=== PATIENT | male | born 1980 | race Two or more races ===

== ENCOUNTER 2017-11-15 23:19 | Emergency (ER) | payer SELFPAY ==
[~2017-11-15] VITALS: Ht 172.7 cm; Wt 78.9 kg
--- NOTE | 2017-11-15 23:31 | NUR ---
[id number] C/C PER EMS, PT'S STATES "HE IS ACTING STRANGE AFTER DRINKING 4 BOTTLES OF BEER TODAY". BS IN FIELD 139. -SI,-HI. PT AOX3 RR EVEN AND UNLABORED. PT DENIES ANY MEDICAL COMPLAINT. NO SOB NOTED. NAD NOTED. NO NVD AT THIS. PT PLACED ON MONITOR WAITING FOR MD SILVA.
--- NOTE | 2017-11-15 23:38 | NUR ---
Patient eloped from facility. ER MD notified.
--- NOTE | 2017-11-16 00:50 | NUR ---
PT RETURNED WITH WITH AT BEDSIDE. PT'S STATES "HE IS ACTING STRANGE AFTER DRINKING 4 BOTTLES OF BEER TODAY" PT -SI,-HI. PT AOX3 RR EVEN AND UNLABORED. PT DENIES ANY MEDICAL COMPLAINT. NO SOB NOTED. NAD NOTED. NO NVD AT THIS. PT PLACED ON MONITOR WAITING FOR MD SILVA
--- NOTE | 2017-11-16 01:06 | NUR ---
PT HANDED OVER URINE AND STATED HE POURED WATER FROM SINK IN THE URINE CONTAINER. MADE AWARE.
--- NOTE | 2017-11-16 01:56 | NUR ---
CALLED LAB FOR BLOOD DRAW.
--- NOTE | 2017-11-16 02:16 | NUR ---
LAB AT BEDSIDE FOR BLOOD DRAW
[2017-11-16 02:22] LABS: EOSINOPHILS % (AUTO) 1.2 % (0.0-6.0); HEMOGLOBIN 14.1 g/dL (13.5-17.5)
[2017-11-16 02:29] LABS: BASOPHILS # (AUTO) 0.1 /CMM (0.0-0.2); BASOPHILS % (AUTO) 1.1 % (0.0-2.0); HEMATOCRIT 41 % (39-51); LYMPHOCYTES # (AUTO) 2.8 /CMM (0.8-4.8); LYMPHOCYTES % (AUTO) 45.4 % (20.0-44.0); MEAN CORPUSCULAR HEMOGLOBIN 34 PG (26.0-33.0); MEAN CORPUSCULAR HGB CONC 34 g/dl (31.0-36.0); MEAN CORPUSCULAR VOLUME 98 fL (80-96); MONOCYTES # (AUTO) 0.6 /CMM (0.1-1.30); MONOCYTES % (AUTO) 9.1 % (2.0-12.0); NEUTROPHILS # (AUTO) 2.7 /CMM (1.8-8.9); NEUTROPHILS % (AUTO) 43.2 % (43.0-81.0); PLATELET COUNT (AUTO) 214 /CMM (150-450); RDW COEFFICIENT OF VARIATION 13.4 (11.5-15.0); WHITE BLOOD COUNT (AUTO) 6.2 K/uL (4.3-11.0)
[2017-11-16 02:36] LABS: ALBUMIN 3.9 g/dL (3.4-5.0); BILIRUBIN,TOTAL 0.1 mg/dL (0.2-1.0); CALCIUM, SERUM 8.6 mg/dL (8.5-10.1); CREATININE 0.9 mg/dL (0.6-1.3); POTASSIUM 3.9 mmol/L (3.5-5.1); TOTAL PROTEIN, SERUM 7.4 g/dL (6.4-8.2)
[2017-11-16 02:49] LABS: SALICYLATE 1.2 mg/dL (2.8-20.0)
--- NOTE | 2017-11-16 04:52 | NUR ---
URINE COLLECTED. 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
[2017-11-16 05:11] LABS: APPEARANCE,URINE CLEAR (CLEAR); BILIRUBIN,URINE NEGATIVE (NEGATIVE); BLOOD, URINE TRACE Ery/uL (NEGATIVE); COLOR,URINE YELLOW (YELLOW); KETONES,URINE NEGATIVE (NEGATIVE); LEUKOCYTE ESTERASE ,URINE NEGATIVE (NEGATIVE); NITRITE, URINE NEGATIVE (NEGATIVE); PROTEIN,URINE NEGATIVE (NEGATIVE); UGLUCOSE NEGATIVE (NEGATIVE); UROBILINOGEN,URINE 0.2 EU/dL (0.2)
[2017-11-16 05:14] LABS: BACTERIA,URINE None seen /HPF (None Seen); RBC,URINE 0-2 /HPF (0-2); SQUAMOUS EPITHELIAL CELL,UR Few /HPF (None Seen); WBC,URINE 0-2 /HPF (0-3)
--- NOTE | 2017-11-16 06:07 | NUR ---
CALLED PT , VM LEFT.
--- NOTE | 2017-11-16 07:25 | NUR ---
REPORT GIVEN TO LUCY PETE.
[2017-11-16 08:33] VITALS: BP 125/89
--- NOTE | 2017-11-16 08:34 | NUR ---
Pt ambulatory with a steady gait.
--- NOTE | 2017-11-16 08:35 | NUR ---
Patient discharged to home in stable condition. Written and verbal after care instructions given. Patient verbalizes understanding of instruction.
== END 2017-11-16 08:36 | disposition home or self-care (01) ==
LOC: ER 23:21
DX: F10.129 Alcohol abuse with intoxication, unspecified (principal); F41.9 Anxiety disorder, unspecified; F32.9 Major depressive disorder, single episode, unspecified; Y90.9 Presence of alcohol in blood, level not specified
CPT/HCPCS: 36415; 80048; 80076; 80305; 80329; 81001; 85025; 99284; A4606; G0480 ×2; Z7610; 81000-TC